=== PATIENT | male | born 1955 | race Caucasian/White ===

== ENCOUNTER 2018-12-18 13:51 | Emergency (ER) | payer SELFPAY ==
[~2018-12-18 13:51] MED LIST: EPINEPHrine 1:10,000 1 MG/10 ML Syringe ONE
[2018-12-18] MEDS ORDERED: methylPREDNISolone Sodium Succinate 125 MG/2 ML SDV IVPUSH ONE (13:53)
[2018-12-18] MEDS ORDERED: diphenhydrAMINE 50 MG/ML SDV IVPUSH ONE (13:53)
[2018-12-18] MEDS ORDERED: methylPREDNISolone Sodium Succinate 125 MG/2 ML SDV ONE (13:53)
[2018-12-18] MEDS ORDERED: Famotidine 20 MG/2 ML SDV IVPUSH ONE (13:53)
[2018-12-18] MEDS ORDERED: Sodium Chloride 0.9% 1,000 ML IV ONE (13:55)
[2018-12-18] MEDS ORDERED: Sodium Chloride 0.9% 10 ML Syringe FLUSH PRN (13:55)
[2018-12-18] MEDS ORDERED: EPINEPHrine 1 MG/ML SDV IM ONE (13:55)
--- NOTE | 2018-12-18 15:17 | EDM.PDOC ---
ED HPI GENERAL MEDICAL PROBLEM - General Chief Complaint: Allergic Reaction Stated Complaint: BEE STING Time Seen by Provider: 12/18/18 13:54 Source of Information: Reports: Family History Limitations: Reports: Altered Mental Status - History of Present Illness INITIAL COMMENTS - FREE TEXT/NARRATIVE: The patient presents with an anaphylactic reaction to a bee sting. He was stung in the left arm. This was minutes before arrival. He was unresponsive but breathing in his car. Myself and 2 nursed lifted him out of the car into the wheel chair. We brought him to trauma room 2 and put him on the bed and gave him oxygen, epinephrine 0.3mg subcutaneous, IV, solu-medrol 125mg IV, pepcid 20mg IV and benadryl 25mg IV. He started to come around and he is talking to us now. This is the 3rd time this has happened and it gets worse every time. He has no rash that I can see but he is pale. Onset: Sudden Duration: Minutes: Location: Reports: Upper Extremity, Left (forearm) Quality: Reports: Sharp Severity: Mild Improves with: Reports: None Worsens with: Reports: None Associated Symptoms: Reports: Shortness of Breath - Related Data Allergies Allergy/AdvReac Type Severity Reaction Status Date / Time wasp Allergy Anaphylactic Uncoded 12/18/18 13:58 Shock Home Meds: Home Meds EPINEPHrine [Epipen] 0.3 mg IM ASDIRECTED PRN #1 pen 12/18/18 [Rx] predniSONE [Prednisone] 40 mg PO DAILY #10 tablet 12/18/18 [Rx] Past Medical History HEENT History: Reports: Impaired Vision Other HEENT History: wears glasses Social & Family History - Tobacco Use Smoking Status *Q: Former Smoker Used Tobacco, but Quit: Yes Month/Year Tobacco Last Used: 3 years ago - Caffeine Use Caffeine Use: Reports: Coffee - Recreational Drug Use Recreational Drug Use: No ED ROS ALLERGIC REACTION - Review of Systems Review Of Systems: See Below Constitutional: Reports: No Symptoms HEENT: Reports: No Symptoms Respiratory: Reports: Shortness of Breath Cardiovascular: Reports: Lightheadedness. Denies: Chest Pain Endocrine: Reports: No Symptoms GI/Abdominal: Reports: No Symptoms : Reports: No Symptoms Musculoskeletal: Reports: No Symptoms ED EXAM GENERAL NO PERIP PULSE - Physical Exam Exam: See Below Exam Limited By: Altered Mental Status General Appearance: Obtunded Ears: Normal External Exam Nose: Normal Inspection Throat/Mouth: Normal Inspection Head: Atraumatic, Normocephalic Neck: Normal Inspection Respiratory/Chest: No Respiratory Distress, Lungs Clear, Normal Breath Sounds Cardiovascular: Regular Rate, Rhythm, No Edema, No Murmur GI/Abdominal: Soft, Non-Tender, No Organomegaly, No Mass Back Exam: Normal Inspection Extremities: Other (Bee sting to left forearm) Course - Vital Signs Last Recorded V/S: Last Vital Signs Temp 97.4 F 12/18/18 13:59 Pulse 120 H 12/18/18 13:59 Resp 13 12/18/18 13:59 BP 72/47 L 12/18/18 13:59 Pulse Ox 100 12/18/18 13:59 - Orders/Labs/Meds Orders: Active Orders 24 hr Category Date Time Status Peripheral IV Care [RC] . DIRECTED Care 12/18/18 13:55 Active Sodium Chloride 0.9% [Saline Flush] Med 12/18/18 13:55 Active 10 ml FLUSH ASDIRECTED PRN Peripheral IV Insertion Adult [OM.PC] Routine Oth 12/18/18 13:55 Ordered Medication Orders Sodium Chloride (Saline Flush) 10 ml FLUSH ASDIRECTED PRN PRN Reason: Keep Vein Open Last Admin: 12/18/18 13:55 Dose: 10 ml Meds: Medications Generic Name Dose Route Start Last Admin Trade Name Freq PRN Reason Stop Dose Admin Sodium Chloride 10 ml 12/18/18 13:55 12/18/18 13:55 Saline Flush FLUSH 10 ml ASDIRECTED PRN Administration Keep Vein Open Discontinued Medications Generic Name Dose Route Start Last Admin Trade Name Freq PRN Reason Stop Dose Admin Diphenhydramine HCl 50 mg 12/18/18 13:53 12/18/18 13:58 Benadryl IVPUSH 12/18/18 13:54 50 mg ONETIME ONE Administration Epinephrine HCl 0.3 mg 12/18/18 13:55 12/18/18 13:53 Adrenalin IM 12/18/18 13:56 0.3 mg ONETIME ONE Administration Famotidine 20 mg 12/18/18 13:53 12/18/18 13:56 Pepcid IVPUSH 12/18/18 13:54 20 mg ONETIME ONE Administration Sodium Chloride 1,000 mls @ 1,000 mls/hr 12/18/18 13:55 12/18/18 14:06 Normal Saline IV 12/18/18 14:54 1,000 mls/hr ONETIME ONE Administration Methylprednisolone Sodium Succinate 125 mg 12/18/18 13:53 12/18/18 13:55 Solu-Medrol IVPUSH 12/18/18 13:54 125 mg ONETIME ONE Administration - Re-Assessments/Exams Free Text/Narrative Re-Assessment/Exam: 12/18/18 15:19 I ordered epinephrine 0.3mg IM, peripheral IV, solu-medrol 125mg IV, pepcid 20mg IV, and benadryl 50mg IV. He is doing much better and he would like to go home. I will get him on prednisone and more epipens. Departure - Departure Time of Disposition: 15:30 Disposition: Home, Self-Care 01 Condition: Good Clinical Impression: Bee sting allergy Anaphylactic reaction Qualifiers: Encounter type: initial encounter Qualified Code(s): T78.2XXA - Anaphylactic shock, unspecified, initial encounter - Discharge Information *PRESCRIPTION DRUG MONITORING PROGRAM REVIEWED*: No *COPY OF PRESCRIPTION DRUG MONITORING REPORT IN PATIENT NADEGE: No Prescriptions: EPINEPHrine [Epipen] 0.3 mg IM ASDIRECTED PRN #1 pen PRN Reason: Allergies predniSONE [Prednisone] 40 mg PO DAILY #10 tablet Referrals: PCP,Unknown [Ordering Only Provider] - Forms: ED Department Discharge Additional Instructions: Take the prednisone daily for 5 days. Take pepcid daily for 5 days. Use the epipen as needed for any allergic reaction. Take benadryl for any reaction. - My Orders Last 24 Hours: My Active Orders 12/18/18 13:55 Peripheral IV Care [RC] . DIRECTED Sodium Chloride 0.9% [Saline Flush] 10 ml FLUSH ASDIRECTED PRN Peripheral IV Insertion Adult [OM.PC] Routine - Assessment/Plan Last 24 Hours: My Active Orders 12/18/18 13:55 Peripheral IV Care [RC] . DIRECTED Sodium Chloride 0.9% [Saline Flush] 10 ml FLUSH ASDIRECTED PRN Peripheral IV Insertion Adult [OM.PC] Routine
== END 2018-12-18 15:45 | disposition home or self-care (01) ==
LOC: JD.ED 13:51
DX: T63.441A Toxic effect of venom of bees, accidental (unintentional), initial encounter (principal); T78.2XXA Anaphylactic shock, unspecified, initial encounter; Z91.038 Other insect allergy status; Z87.891 Personal history of nicotine dependence
CPT/HCPCS: 96361; 96372; 96374; 96375; 99284; J0171; J1200; J2930; J7040; S0028; J3490